=== PATIENT | female | born 1950 | race Caucasian/White ===

== ENCOUNTER 2020-04-04 08:42 | Outpatient (CLI) | payer MEDICARE, SELFPAY ==
[2020-04-04 09:17] LABS: Basophils Percent Auto 0.3 % (0.2-1.2); Eosinophils Absolute Auto 0.1 K/mm3 (0-0.3); Eosinophils Percent Auto 1.5 % (0-4.4); Hematocrit 40.9 % (37.0-47.0); Hemoglobin 12.8 g/dL (12.0-15.0); Immature Granulocyte Absolute 0.02 K/mm3 (0.00-0.031); Immature Granulocyte Percent A 0.3 % (0-0.5); Lymphocytes Absolute Auto 1.26 K/mm3 (0.9-3.2); Lymphocytes Percent Auto 19.1 % (18.3-44.2); Mean Corpuscular HGB Conc 31.3 g/dl (32-36); Mean Corpuscular Hemoglobin 27.3 pg (26-34); Mean Corpuscular Volume 87.2 fl (80-100); Mean Platelet Volume 10.1 fl (7.4-10.4); Monocytes Absolute Auto 0.4 K/mm3 (0.1-0.6); Monocytes Percent Auto 6.5 % (2.6-8.5); Neutrophils Absolute Auto 4.8 K/mm3 (1.3-6.7); Neutrophils Percent Auto 72.3 % (45.5-73.1); Platelet Count Result 217 k/mm3 (150-375); Red Blood Count 4.69 M/mm3 (4.2-5.4); Red Cell Distribution Width 14.8 % (11.5-14.5); White Blood Count 6.6 K/mm3 (4.5-10.0)
[2020-04-04 09:23] LABS: Hemoglobin A1C 6.1 % (<5.7)
[2020-04-04 09:30] LABS: Alanine Aminotransferase 12 U/L (4-35); Albumin Level 4.3 g/dL (3.5-5.1); Alkaline Phosphatase 87 U/L (38-126); Aspartate Amino Transferase 18 U/L (14-36); Bilirubin,Total 0.5 mg/dL (0.2-1.3); Blood Urea Nitrogen 23 mg/dL (7-17); Calcium 9.4 mg/dL (8.4-10.2); Carbon Dioxide 30 mmol/L (22-30); Chloride 104 mmol/L (98-107); Cholesterol 186 mg/dL (0-200); Estimated Glomerular Filt Rate > 60; Glucose 116 mg/dL (65-105); HDL Direct 45 mg/dL; Potassium 5.1 mmol/L (3.4-5.0); Sodium 139 mmol/L (137-145); Triglycerides 157 mg/dL (<150)
[2020-04-04 09:41] LABS: LDL Cholesterol Direct 50 mg/dL
[2020-04-04 10:58] LABS: Free T4 Free Thyroxine 0.82 ng/mL (0.78-2.19)
[2020-04-08 22:55] LABS: Homocysteine 13.3 umol/L (<10.4)
[2020-04-09 13:30] LABS: Vitamin D 1,25 (OH)2 Total 47 pg/mL (18-72); Vitamin D2 1,25 (OH)2 <8 pg/mL; Vitamin D3 1,25 (OH)2 47 pg/mL
== END 2020-04-04 08:43 | disposition home or self-care (01) ==
PROVIDERS: PCP Internal Medicine; Visit Provider Internal Medicine
DX: E55.9 Vitamin D deficiency, unspecified (principal); E03.9 Hypothyroidism, unspecified; Z79.899 Other long term (current) drug therapy; R79.9 Abnormal finding of blood chemistry, unspecified; E05.90 Thyrotoxicosis, unspecified without thyrotoxic crisis or storm
CPT/HCPCS: 36415; 80053; 80061; 82652; 83036; 83090; 84439; 84443; 85025

== ENCOUNTER 2020-05-27 09:48 | Outpatient (CLI) | payer MEDICARE, SELFPAY ==
[2020-05-27 11:12] LABS: Thyroid Stimulating Hormone 0.228 uIU/mL (0.465-4.680)
[2020-05-27 11:32] LABS: Free T4 Free Thyroxine 1.85 ng/mL (0.78-2.19)
== END 2020-05-27 09:49 | disposition home or self-care (01) ==
PROVIDERS: PCP Internal Medicine; Visit Provider Internal Medicine
DX: E05.90 Thyrotoxicosis, unspecified without thyrotoxic crisis or storm (principal)
CPT/HCPCS: 36415; 84439; 84443

== ENCOUNTER 2020-07-17 15:44 | Outpatient (CLI) | payer MEDICARE, SELFPAY ==
[2020-07-17 16:19] LABS: Hemoglobin A1C 5.6 % (<5.7)
[2020-07-17 16:25] LABS: Anion Gap 6 mmol/L (8-16); Blood Urea Nitrogen 21 mg/dL (7-17); Calcium 8.8 mg/dL (8.4-10.2); Carbon Dioxide 30 mmol/L (22-30); Chloride 104 mmol/L (98-107); Cholesterol 146 mg/dL (0-200); Estimated Glomerular Filt Rate > 60; Glucose 100 mg/dL (65-105); HDL Direct 51 mg/dL; Potassium 4.4 mmol/L (3.4-5.0); Sodium 140 mmol/L (137-145); Triglycerides 118 mg/dL (<150)
[2020-07-17 16:35] LABS: LDL Cholesterol Direct 42 mg/dL
== END 2020-07-17 15:45 | disposition home or self-care (01) ==
PROVIDERS: PCP Internal Medicine; Visit Provider Internal Medicine
DX: E03.9 Hypothyroidism, unspecified (principal); R73.03 Prediabetes; Z79.899 Other long term (current) drug therapy
CPT/HCPCS: 36415; 80048; 80061; 83036

== ENCOUNTER 2020-10-28 12:50 | Outpatient (CLI) | payer MEDICARE, SELFPAY ==
[2020-10-28 13:47] LABS: Anion Gap 6 mmol/L (8-16); Blood Urea Nitrogen 14 mg/dL (7-17); Calcium 8.8 mg/dL (8.4-10.2); Carbon Dioxide 30 mmol/L (22-30); Chloride 105 mmol/L (98-107); Cholesterol 195 mg/dL (0-200); Estimated Glomerular Filt Rate > 60; Glucose 117 mg/dL (65-105); HDL Direct 58 mg/dL; Potassium 4.1 mmol/L (3.4-5.0); Sodium 141 mmol/L (137-145); Triglycerides 116 mg/dL (<150)
[2020-10-28 13:50] LABS: LDL Cholesterol Direct 66 mg/dL
[2020-10-28 14:15] LABS: Free T4 Free Thyroxine 1.05 ng/mL (0.78-2.19)
== END 2020-10-28 12:51 | disposition home or self-care (01) ==
PROVIDERS: PCP Internal Medicine; Visit Provider Internal Medicine
DX: E05.90 Thyrotoxicosis, unspecified without thyrotoxic crisis or storm (principal); Z79.899 Other long term (current) drug therapy
CPT/HCPCS: 36415; 80048; 80061; 84439; 84443

== ENCOUNTER 2021-04-21 16:07 | Outpatient (CLI) | payer MEDICARE, SELFPAY ==
--- NOTE | ~2021-04-21 | MM_ITS ---
EXAMINATION: MM screening huber BI w giorgio HISTORY: Screening TECHNIQUE: Craniocaudal and mediolateral oblique 3-D tomosynthesis images were obtained and synthetic 2-D images were generated. CAD analysis was submitted and interpreted. COMPARISON: No prior mammogram is available for comparison at this institution. BREAST PARENCHYMAL COMPOSITION: There are scattered areas of fibroglandular density. FINDINGS: There is no evidence of suspicious mass, calcification, or architectural distortion to sugg est malignancy in either breast. There has been no suspicious interval change. IMPRESSION: 1. No mammographic evidence of malignancy. 2. Recommend routine screening mammography in one year. BI-RADS Category 1: Negative Reviewed, dictated and finalized at location A.
--- NOTE | ~2021-04-21 | DEXA_ITS ---
Bone Density Report Name: Shasta Powers Age: 70 Sex: Female Ethnicity: White Date of : 1950 Indication: postmenopausal; cancer; hysterectomy; Referring Provider: MITCHELL MONTES Study: Bone densitometry was performed. Exam Date: April 21, 2021 Accession number: [id number] Bone Density: Region BMD T-score Z-score Classification AP Spine (L1-L4) 1.138 0.8 3.1 Normal Femoral Neck (Left) 0.715 -1.2 0.7 Osteopenia Total Hip (Left) 0.968 0.2 1.9 Normal Total Hip Bilateral Avg 0.940 -0.1 1.7 Normal Femoral Neck (Right) 0.814 -0.3 1.6 Normal Total Hip (Right) 0.911 -0.3 1.4 Normal World Health Organization criteria for BMD impression classify patients as: Normal (T-score at or above -1.0), Osteopenia (T-score between -1.0 and -2.5), or Osteoporosis (T-score at or below -2.5). 10-year Fracture Risk(1): Major Osteoporotic Fracture 9.5% Hip Fracture 1.3% Reported Risk Factors: [place] (), Neck BMD=0.715, BMI=30.9 (1) FRAX(R) Version 3.08. Fracture probability calculated for an untreated patient. Fracture probability may be lower if the patient has received treatment. Clinical Information Provided by Patient: Has used the following medications: Vitamin D Has the following medical conditions: Cancer, Hysterectomy Patient maximum height was 69 Menopause Age: 38 Onset of menses at age 11 Number of children 2 Impression: The patient has low bone mass, based on the Left Femoral Neck T-score. The patient has an estimated ten-year risk of hip fracture of 1.3% and an estimated ten-year risk of major fracture of 9.5%, based on the WHO FRAX algorithm. Discussion: BONE DENSITY IS LOW AT ONE OR MORE SKELETAL SITES. This patient's lowest T-score is low at one or more skeletal sites. It meets the World Health Organization's (WHO) criteria for ?low bone mass? (T-score between -1.0 and -2.5). The patient's 10-year risk of fracture as calculated by FRAX is less than the threshold where pharmacological therapy is recommended by the National Osteoporosis Foundation (NOF). However, all treatment decisions require clinical judgment and consideration of individual patient factors, including patient preferences, comorbidities, previous drug use, risk factors not captured in the FRAX model (e.g., frailty, falls, vitamin D deficiency, increased bone turnover, interval significant decline in bone density) and possible under or overestimation of fracture risk by FRAX. The patient should follow a healthful lifestyle (good nutrition with adequate calcium and vitamin D, and appropriate weight-bearing exercise). Follow-Up: Consider repeating this study in 2 to 3 years to reassess this patient's status, or sooner if there is some new clinical indication. Reported by: CLAIRE on 04/21/2021 3:37:00 PM.
[2021-04-21 17:12] LABS: Basophils Percent Auto 0.3 % (0.2-1.2); Eosinophils Absolute Auto 0.1 K/mm3 (0-0.3); Eosinophils Percent Auto 0.9 % (0-4.4); Hematocrit 40.9 % (37.0-47.0); Immature Granulocyte Absolute 0.01 K/mm3 (0.00-0.031); Immature Granulocyte Percent A 0.1 % (0-0.5); Lymphocytes Absolute Auto 1.64 K/mm3 (0.9-3.2); Lymphocytes Percent Auto 20.9 % (18.3-44.2); Mean Corpuscular HGB Conc 31.8 g/dl (32-36); Mean Corpuscular Hemoglobin 27.4 pg (26-34); Mean Corpuscular Volume 86.3 fl (80-100); Mean Platelet Volume 10.4 fl (7.4-10.4); Monocytes Absolute Auto 0.5 K/mm3 (0.1-0.6); Monocytes Percent Auto 5.7 % (2.6-8.5); Neutrophils Absolute Auto 5.7 K/mm3 (1.3-6.7); Neutrophils Percent Auto 72.1 % (45.5-73.1); Platelet Count Result 264 k/mm3 (150-375); Red Blood Count 4.74 M/mm3 (4.2-5.4); Red Cell Distribution Width 14.8 % (11.5-14.5); White Blood Count 7.9 K/mm3 (4.5-10.0)
[2021-04-21 17:25] LABS: Alanine Aminotransferase 14 U/L (4-35); Albumin Level 4.8 g/dL (3.5-5.1); Alkaline Phosphatase 74 U/L (38-126); Anion Gap 11 mmol/L (8-16); Aspartate Amino Transferase 21 U/L (14-36); Bilirubin,Total 0.5 mg/dL (0.2-1.3); Blood Urea Nitrogen 26 mg/dL (7-17); Calcium 9.9 mg/dL (8.4-10.2); Carbon Dioxide 24 mmol/L (22-30); Chloride 102 mmol/L (98-107); Cholesterol 218 mg/dL (0-200); Estimated Glomerular Filt Rate > 60; Glucose 97 mg/dL (65-110); HDL Direct 57 mg/dL; Potassium 4.6 mmol/L (3.4-5.0); Sodium 137 mmol/L (137-145); Triglycerides 179 mg/dL (<150)
[2021-04-21 17:36] LABS: LDL Cholesterol Direct 52 mg/dL
[2021-04-21 18:35] LABS: Hemoglobin A1C 5.8 % (<5.7)
[2021-04-21 19:03] LABS: Free T4 Free Thyroxine 1.39 ng/mL (0.78-2.19)
[2021-04-25 20:09] LABS: Homocysteine 11.2 umol/L (<10.4)
[2021-04-25 23:46] LABS: Vitamin D 1,25 (OH)2 Total 43 pg/mL (18-72); Vitamin D2 1,25 (OH)2 <8 pg/mL; Vitamin D3 1,25 (OH)2 43 pg/mL
== END 2021-04-21 16:08 | disposition home or self-care (01) ==
PROVIDERS: PCP Internal Medicine; Visit Provider Internal Medicine
DX: Z12.31 Encounter for screening mammogram for malignant neoplasm of breast (principal); Z78.0 Asymptomatic menopausal state; E55.9 Vitamin D deficiency, unspecified; Z79.899 Other long term (current) drug therapy; E03.9 Hypothyroidism, unspecified; R73.09 Other abnormal glucose; R79.89 Other specified abnormal findings of blood chemistry; M85.852 Other specified disorders of bone density and structure, left thigh
CPT/HCPCS: 36415; 77063; 77067; 77080; 80053; 80061; 82652; 83036; 83090; 84439; 84443; 85025

== ENCOUNTER 2021-11-03 15:47 | Outpatient (CLI) | payer MEDICARE, SELFPAY ==
[2021-11-03 16:41] LABS: Alanine Aminotransferase 14 U/L (4-35); Albumin Level 4.2 g/dL (3.5-5.1); Alkaline Phosphatase 74 U/L (38-126); Anion Gap 6 mmol/L (8-16); Aspartate Amino Transferase 22 U/L (14-36); Bilirubin,Total 0.4 mg/dL (0.2-1.3); Blood Urea Nitrogen 25 mg/dL (7-17); Calcium 9.3 mg/dL (8.4-10.2); Carbon Dioxide 28 mmol/L (22-30); Chloride 105 mmol/L (98-107); Cholesterol 215 mg/dL (0-200); Estimated Glomerular Filt Rate 49; Glucose 102 mg/dL (65-110); HDL Direct 51 mg/dL; Potassium 4.7 mmol/L (3.4-5.0); Sodium 139 mmol/L (137-145); Triglycerides 204 mg/dL (<150)
[2021-11-03 16:43] LABS: Basophils Percent Auto 0.3 % (0.2-1.2); Eosinophils Absolute Auto 0.1 K/mm3 (0-0.3); Eosinophils Percent Auto 1.8 % (0-4.4); Hematocrit 42.4 % (37.0-47.0); Hemoglobin 12.9 g/dL (12.0-15.0); Immature Granulocyte Absolute 0.02 K/mm3 (0.00-0.031); Immature Granulocyte Percent A 0.3 % (0-0.5); Lymphocytes Absolute Auto 1.82 K/mm3 (0.9-3.2); Lymphocytes Percent Auto 25.9 % (18.3-44.2); Mean Corpuscular HGB Conc 30.4 g/dl (32-36); Mean Corpuscular Hemoglobin 27.7 pg (26-34); Mean Corpuscular Volume 91.2 fl (80-100); Mean Platelet Volume 10.3 fl (7.4-10.4); Monocytes Absolute Auto 0.5 K/mm3 (0.1-0.6); Monocytes Percent Auto 7.1 % (2.6-8.5); Neutrophils Absolute Auto 4.5 K/mm3 (1.3-6.7); Neutrophils Percent Auto 64.6 % (45.5-73.1); Platelet Count Result 237 k/mm3 (150-375); Red Blood Count 4.65 M/mm3 (4.2-5.4); Red Cell Distribution Width 15.1 % (11.5-14.5)
[2021-11-03 16:52] LABS: LDL Cholesterol Direct 67 mg/dL
[2021-11-03 18:59] LABS: Hemoglobin A1C 5.7 % (<5.7)
[2021-11-03 20:14] LABS: Free T4 Free Thyroxine 0.88 ng/mL (0.78-2.19); Vitamin D 25 Hydroxy 53.6 ng/mL
[2021-11-03 21:36] LABS: Vitamin B12 > 1000.0 pg/mL (239-931)
== END 2021-11-03 15:48 | disposition home or self-care (01) ==
LOC: ANHLAB 15:51
PROVIDERS: PCP Internal Medicine; Visit Provider Internal Medicine
DX: R79.89 Other specified abnormal findings of blood chemistry (principal); E55.9 Vitamin D deficiency, unspecified; R73.09 Other abnormal glucose; E78.5 Hyperlipidemia, unspecified; E03.9 Hypothyroidism, unspecified; Z79.899 Other long term (current) drug therapy
CPT/HCPCS: 36415; 80053; 80061; 82306; 82607; 82746; 83036; 84439; 84443; 85025

== ENCOUNTER 2022-07-09 09:09 | Outpatient (CLI) | payer MEDICARE, SELFPAY ==
[2022-07-09 09:27] LABS: Basophils Percent Auto 0.3 % (0.2-1.2); Eosinophils Absolute Auto 0.2 K/mm3 (0-0.3); Eosinophils Percent Auto 2.5 % (0-4.4); Hemoglobin 12.6 g/dL (12.0-15.0); Immature Granulocyte Absolute 0.01 K/mm3 (0.00-0.031); Immature Granulocyte Percent A 0.1 % (0-0.5); Lymphocytes Absolute Auto 1.32 K/mm3 (0.9-3.2); Lymphocytes Percent Auto 19.8 % (18.3-44.2); Mean Corpuscular HGB Conc 31.5 g/dl (32-36); Mean Corpuscular Volume 85.7 fl (80-100); Mean Platelet Volume 9.9 fl (7.4-10.4); Monocytes Absolute Auto 0.5 K/mm3 (0.1-0.6); Neutrophils Absolute Auto 4.7 K/mm3 (1.3-6.7); Neutrophils Percent Auto 70.3 % (45.5-73.1); Platelet Count Result 248 k/mm3 (150-375); Red Blood Count 4.67 M/mm3 (4.2-5.4); Red Cell Distribution Width 15.8 % (11.5-14.5); White Blood Count 6.7 K/mm3 (4.5-10.0)
[2022-07-09 09:41] LABS: Alanine Aminotransferase 16 U/L (6-35); Albumin Level 4.3 g/dL (3.5-5.1); Alkaline Phosphatase 74 U/L (38-126); Anion Gap 13 mmol/L (8-16); Aspartate Amino Transferase 21 U/L (14-36); Bilirubin,Total 0.5 mg/dL (0.2-1.3); Blood Urea Nitrogen 20 mg/dL (7-17); Calcium 8.8 mg/dL (8.4-10.2); Carbon Dioxide 26 mmol/L (22-30); Chloride 102 mmol/L (98-107); Cholesterol 165 mg/dL (0-200); Estimated Glomerular Filt Rate > 60; Glucose 98 mg/dL (65-110); HDL Direct 58 mg/dL; Potassium 4.1 mmol/L (3.4-5.0); Sodium 141 mmol/L (137-145); Triglycerides 91 mg/dL (<150)
[2022-07-09 09:52] LABS: LDL Cholesterol Direct 49 mg/dL
[2022-07-09 09:58] LABS: Free T4 Free Thyroxine 1.78 ng/mL (0.78-2.19); Vitamin D 25 Hydroxy 38.9 ng/mL
[2022-07-09 10:10] LABS: Thyroid Stimulating Hormone 0.164 uIU/mL (0.465-4.680)
[2022-07-16 16:43] LABS: Homocysteine 9.4 umol/L (<10.4)
== END 2022-07-09 09:10 | disposition home or self-care (01) ==
PROVIDERS: PCP Internal Medicine; Visit Provider Internal Medicine
DX: E55.9 Vitamin D deficiency, unspecified (principal); Z51.81 Encounter for therapeutic drug level monitoring; Z79.899 Other long term (current) drug therapy; E03.9 Hypothyroidism, unspecified; R79.89 Other specified abnormal findings of blood chemistry; Z13.220 Encounter for screening for lipoid disorders
CPT/HCPCS: 36415; 80053; 80061; 82306; 83090; 84439; 84443; 85025

== ENCOUNTER 2022-07-13 09:01 | Outpatient (CLI) | payer MEDICARE, SELFPAY ==
--- NOTE | ~2022-07-13 | XR_ITS ---
EXAMINATION: XR chest 2V 07/13/2022 09:21 INDICATION: Shortness of breath. PROCEDURE: 2 view chest COMPARISON: 09/03/2015 FINDINGS: The lungs are clear. The cardiomediastinal silhouette is within normal limits. There are no pleural effusions. There is no pneumothorax suspected. IMPRESSION: 1: NO ACUTE CARDIOPULMONARY DISEASE. Reviewed, dictated and finalized at location B.
== END 2022-07-13 09:02 | disposition home or self-care (01) ==
PROVIDERS: PCP Internal Medicine; Visit Provider Internal Medicine
DX: R06.02 Shortness of breath (principal)
CPT/HCPCS: 71046

== ENCOUNTER 2022-07-27 08:39 | Outpatient (CLI) | payer MEDICARE, SELFPAY ==
--- NOTE | ~2022-07-27 | NM_ITS ---
EXAMINATION: NM hilary stress w perfusion DATE: 07/27/2022 12:14 INDICATION: Shortness of breath. Dyspnea on exertion. TECHNIQUE: Rest images were obtained following intravenous administration of 10.1 mCi Tc99m tetrofosm in (Myoview). The patient was infused intravenously with Lexiscan (Regadenoson). Then, 31.5 mCi Tc99m tetrofosmin (Myoview) was administered intravenously, and stress images were obtained. Data was ramirez nstructed into short axis and horizontal and vertical long axis SPECT images. Gated SPECT images were also obtained. COMPARISON: None. FINDINGS: There is no definite reversible or fixed perfusion abnormality to suggest ischemia or infar ction. There is normal left ventricular chamber size, wall motion and ejection fraction. Left ventr icular ejection fraction measures 67%. IMPRESSION: 1. Normal myocardial perfusion at rest and during stress. 2. Left ventricular ejection fraction measuring 67%. Reviewed, dictated and finalized at location A. [employer]
--- NOTE | 2022-07-27 08:54 | EST_ITS ---
Patient Info Name: Shasta Aquino Age: 71 years : 1950 Gender: Female Ht: 69 in Wt: 220 lbs BSA: 2.24 m2 Exam Date: 07/27/2022 9:53 AM Exam Location: [facility] Stress Patient Status: Outpatient Admit Date: 07/27/2022 Staff Ordering Physician: Gadiel Bradley MD Attending Provider: Gadiel Bradley MD Exercise Technologist: Judy Wick RDCS Exercise Physician: Brendon Salmeron DO Exam Type: CA stress hilary w NM Study Info Indications R06.00 - Dyspnea, unspecified A regadenoson stress test was performed. Summary 1. 1. Negative lexiscan stress test for ischemic ST changes by ECG criteria. 2. 2. Baseline hypertension. 3. 3. Nuclear scan to follow and will be reported separately. Please correlate with it. 4. 4. Patient informed of the above results. Protocol: Lexiscan Stress ECG Details Stage: REST Duration (min): 1 min : 24 sec HR (bpm): 73 SBP (mmHg): 153 DBP (mmHg): 99 Stage: REST Duration (min): 7 min : 54 sec HR (bpm): 75 SBP (mmHg): 153 DBP (mmHg): 99 Stage: STAGE 1 Duration (min): 0 min : 59 sec HR (bpm): 69 SBP (mmHg): 165 DBP (mmHg): 100 Stage: RECOVERY Duration (min): 1 min : 0 sec HR (bpm): 73 SBP (mmHg): 165 DBP (mmHg): 100 Stage: RECOVERY Duration (min): 2 min : 0 sec HR (bpm): 85 SBP (mmHg): 149 DBP (mmHg): 93 Stage: RECOVERY Duration (min): 3 min : 0 sec HR (bpm): 85 SBP (mmHg): 149 DBP (mmHg): 88 Stage: RECOVERY Duration (min): 4 min : 0 sec HR (bpm): 84 SBP (mmHg): 149 DBP (mmHg): 88 Stage: RECOVERY Duration (min): 5 min : 0 sec HR (bpm): 81 SBP (mmHg): 146 DBP (mmHg): 84 Stage: RECOVERY Duration (min): 6 min : 0 sec HR (bpm): 76 SBP (mmHg): 146 DBP (mmHg): 84 Stage: RECOVERY Duration (min): 7 min : 0 sec HR (bpm): 78 SBP (mmHg): 145 DBP (mmHg): 83 Stage: RECOVERY Duration (min): 7 min : 3 sec HR (bpm): 78 SBP (mmHg): 145 DBP (mmHg): 83 Rest HR: 75 bpm Peak HR: 87 bpm Rest Sys BP: 153 mmHg Peak Sys BP: 165 mmHg Max Pred HR: 147 bpm % Max Pred HR: 59 % Target HR: 125 bpm Max RPP: 14,355 bpm*mmHg Termination Reason: Completed protocol Cardiac Symptoms: Nausea Total Time: 1 min : 0 sec Rest Syed BP: 99 mmHg Peak Syed BP: 100 mmHg Total Dose: 0.4 mg Resting ECG Sinus rhythm, IRBBB. Stress ECG No ST changes. Arrhythmias None. Report Signatures
== END 2022-07-27 08:40 | disposition home or self-care (01) ==
LOC: ANHCARD 08:41
PROVIDERS: PCP Internal Medicine; Visit Provider Internal Medicine
DX: R06.02 Shortness of breath (principal); R06.09 Other forms of dyspnea
CPT/HCPCS: 78452; 93017; A9502; J2785

== ENCOUNTER 2023-05-10 10:14 | Outpatient (CLI) | payer MEDICARE, SELFPAY ==
[2023-05-10 11:08] LABS: Basophils Percent Auto 0.3 % (0.2-1.2); Eosinophils Absolute Auto 0.1 K/mm3 (0-0.3); Eosinophils Percent Auto 1.4 % (0-4.4); Hematocrit 43.1 % (37.0-47.0); Hemoglobin 13.3 g/dL (12.0-15.0); Immature Granulocyte Absolute 0.01 K/mm3 (0.00-0.031); Immature Granulocyte Percent A 0.2 % (0-0.5); Lymphocytes Percent Auto 25.5 % (18.3-44.2); Mean Corpuscular HGB Conc 30.9 g/dl (32-36); Mean Corpuscular Hemoglobin 27.7 pg (26-34); Mean Corpuscular Volume 89.6 fl (80-100); Mean Platelet Volume 10.7 fl (7.4-10.4); Monocytes Absolute Auto 0.5 K/mm3 (0.1-0.6); Monocytes Percent Auto 7.3 % (2.6-8.5); Neutrophils Absolute Auto 4.1 K/mm3 (1.3-6.7); Neutrophils Percent Auto 65.3 % (45.5-73.1); Platelet Count Result 242 k/mm3 (150-375); Red Blood Count 4.81 M/mm3 (4.2-5.4); Red Cell Distribution Width 14.9 % (11.5-14.5); White Blood Count 6.3 K/mm3 (4.5-10.0)
[2023-05-10 11:14] LABS: Hemoglobin A1C 5.9 % (<5.7)
[2023-05-10 11:18] LABS: Alanine Aminotransferase 30 U/L (6-35); Albumin Level 4.3 g/dL (3.5-5.1); Alkaline Phosphatase 78 U/L (38-126); Anion Gap 4 mmol/L (8-16); Aspartate Amino Transferase 31 U/L (14-36); Bilirubin,Total 0.6 mg/dL (0.2-1.3); Blood Urea Nitrogen 18 mg/dL (7-17); Calcium 9.2 mg/dL (8.4-10.2); Carbon Dioxide 28 mmol/L (22-30); Chloride 105 mmol/L (98-107); Cholesterol 128 mg/dL (0-200); Estimated Glomerular Filt Rate > 60; Glucose 108 mg/dL (65-110); HDL Direct 65 mg/dL; Potassium 4.5 mmol/L (3.4-5.0); Sodium 137 mmol/L (137-145); Triglycerides 110 mg/dL (<150)
[2023-05-10 11:29] LABS: LDL Cholesterol Direct 37 mg/dL
[2023-05-10 11:48] LABS: Thyroid Stimulating Hormone 0.019 uIU/mL (0.465-4.680)
[2023-05-10 11:54] LABS: Free T4 Free Thyroxine 2.25 ng/mL (0.78-2.19)
== END 2023-05-10 10:15 | disposition home or self-care (01) ==
PROVIDERS: PCP Internal Medicine; Visit Provider Internal Medicine
DX: Z79.899 Other long term (current) drug therapy (principal); E03.9 Hypothyroidism, unspecified; R73.03 Prediabetes; E78.5 Hyperlipidemia, unspecified; E55.9 Vitamin D deficiency, unspecified
CPT/HCPCS: 36415; 80053; 80061; 82306; 83036; 84439; 84443; 85025

== ENCOUNTER 2024-02-07 13:00 | Outpatient (CLI) | payer MEDICARE, SELFPAY ==
--- NOTE | ~2024-02-07 | XR_ITS ---
EXAMINATION: XR chest 2V DATE: 02/07/2024 12:48 INDICATION: Other forms of dyspnea. TECHNIQUE: Frontal and lateral views of the chest were obtained. COMPARISON: Chest 2 views 07/13/2022 FINDINGS: There is mild atelectasis at right lung base. There is no pneumonia, pleural effusion, or p neumothorax. The heart size is normal. IMPRESSION: 1. Mild atelectasis at right lung base. Reviewed, dictated and finalized at location A.
[2024-02-07 13:59] LABS: Hemoglobin A1C 5.8 % (<5.7)
[2024-02-07 14:06] LABS: Alanine Aminotransferase 15 U/L (6-35); Albumin Level 4.5 g/dL (3.5-5.1); Alkaline Phosphatase 69 U/L (38-126); Anion Gap 6 mmol/L (4-12); Aspartate Amino Transferase 23 U/L (14-36); Bilirubin,Total 0.5 mg/dL (0.2-1.3); Blood Urea Nitrogen 14 mg/dL (7-17); Calcium 8.8 mg/dL (8.4-10.2); Carbon Dioxide 26 mmol/L (22-30); Chloride 106 mmol/L (98-107); Cholesterol 200 mg/dL (0-200); Estimated Glomerular Filt Rate > 60; Glucose 92 mg/dL (65-110); HDL Direct 67 mg/dL; Potassium 4.9 mmol/L (3.4-5.0); Sodium 138 mmol/L (137-145); Triglycerides 185 mg/dL (<150)
[2024-02-07 14:17] LABS: LDL Cholesterol Direct 71 mg/dL
[2024-02-07 14:23] LABS: Free T4 Free Thyroxine 1.11 ng/mL (0.78-2.19)
== END 2024-02-07 13:01 | disposition home or self-care (01) ==
PROVIDERS: PCP Internal Medicine; Visit Provider Internal Medicine
DX: R06.09 Other forms of dyspnea (principal); Z79.899 Other long term (current) drug therapy; R73.03 Prediabetes; E78.5 Hyperlipidemia, unspecified; E03.9 Hypothyroidism, unspecified
CPT/HCPCS: 36415; 71046; 80053; 80061; 83036; 84439; 84443

== ENCOUNTER 2024-02-14 11:31 | Outpatient (CLI) | payer MEDICARE, SELFPAY ==
[2024-02-14 12:59] LABS: Basophils Percent Auto 0.3 % (0.2-1.2); Eosinophils Absolute Auto 0.2 K/mm3 (0-0.3); Eosinophils Percent Auto 2.2 % (0-4.4); Hematocrit 44.5 % (37.0-47.0); Hemoglobin 13.7 g/dL (12.0-15.0); Immature Granulocyte Absolute 0.02 K/mm3 (0.00-0.031); Immature Granulocyte Percent A 0.3 % (0-0.5); Lymphocytes Absolute Auto 1.63 K/mm3 (0.9-3.2); Lymphocytes Percent Auto 23.9 % (18.3-44.2); Mean Corpuscular HGB Conc 30.8 g/dl (32-36); Mean Corpuscular Hemoglobin 27.1 pg (26-34); Mean Corpuscular Volume 88.1 fl (80-100); Mean Platelet Volume 10.4 fl (7.4-10.4); Monocytes Absolute Auto 0.4 K/mm3 (0.1-0.6); Neutrophils Absolute Auto 4.6 K/mm3 (1.3-6.7); Neutrophils Percent Auto 67.3 % (45.5-73.1); Platelet Count Result 249 k/mm3 (150-375); Red Blood Count 5.05 M/mm3 (4.2-5.4); Red Cell Distribution Width 15.1 % (11.5-14.5); White Blood Count 6.8 K/mm3 (4.5-10.0)
== END 2024-02-14 11:32 | disposition home or self-care (01) ==
LOC: ANHLAB 11:34
PROVIDERS: PCP Internal Medicine; Visit Provider Internal Medicine
DX: R06.09 Other forms of dyspnea (principal); Z79.899 Other long term (current) drug therapy
CPT/HCPCS: 36415; 85025

== ENCOUNTER 2024-04-02 14:56 | Outpatient (CLI) | payer MEDICARE, SELFPAY ==
[2024-04-02 15:31] LABS: Basophils Percent Auto 0.3 % (0.2-1.2); Eosinophils Absolute Auto 0.1 K/mm3 (0-0.3); Eosinophils Percent Auto 1.8 % (0-4.4); Hematocrit 41.8 % (37.0-47.0); Hemoglobin 13.3 g/dL (12.0-15.0); Immature Granulocyte Absolute 0.01 K/mm3 (0.00-0.031); Immature Granulocyte Percent A 0.2 % (0-0.5); Lymphocytes Absolute Auto 1.49 K/mm3 (0.9-3.2); Lymphocytes Percent Auto 22.6 % (18.3-44.2); Mean Corpuscular HGB Conc 31.8 g/dl (32-36); Mean Corpuscular Hemoglobin 28.1 pg (26-34); Mean Corpuscular Volume 88.4 fl (80-100); Mean Platelet Volume 10.1 fl (7.4-10.4); Monocytes Absolute Auto 0.5 K/mm3 (0.1-0.6); Monocytes Percent Auto 7.1 % (2.6-8.5); Neutrophils Absolute Auto 4.5 K/mm3 (1.3-6.7); Platelet Count Result 215 k/mm3 (150-375); Red Blood Count 4.73 M/mm3 (4.2-5.4); Red Cell Distribution Width 14.7 % (11.5-14.5); White Blood Count 6.6 K/mm3 (4.5-10.0)
[2024-04-02 15:48] LABS: Alanine Aminotransferase 17 U/L (6-35); Albumin Level 4.5 g/dL (3.5-5.1); Alkaline Phosphatase 54 U/L (38-126); Anion Gap 9 mmol/L (4-12); Aspartate Amino Transferase 22 U/L (14-36); Bilirubin,Total 0.6 mg/dL (0.2-1.3); Blood Urea Nitrogen 13 mg/dL (7-17); Carbon Dioxide 26 mmol/L (22-30); Chloride 105 mmol/L (98-107); Cholesterol 120 mg/dL (0-200); Estimated Glomerular Filt Rate > 60; Glucose 99 mg/dL (65-110); HDL Direct 47 mg/dL; Potassium 4.3 mmol/L (3.4-5.0); Sodium 140 mmol/L (137-145); Triglycerides 231 mg/dL (<150)
[2024-04-02 16:04] LABS: Free T4 Free Thyroxine 1.33 ng/mL (0.78-2.19); Vitamin D 25 Hydroxy 51.3 ng/mL
[2024-04-02 16:06] LABS: Appearance Urine Clear (Clear); Bacteria Urine None Seen /hpf; Bilirubin Urine Negative (Negative); Blood Urine Negative (Negative); Color Urine Yellow (Yellow); Glucose Urine UA Negative (Negative); Ketones Urine Negative (Negative); Leukocyte Esterase Ur 1+ LEU/UL (Negative); Need Manual Microscopic Reviewed; Nitrate Urine Negative (Negative); Non Pathogenic Casts 0-2; Protein Urine Negative (Negative); RBC Urine 0-2 /hpf (0-2); Specific Grav Ur 1.018 (1.001-1.035); Squamous Epithelial Cell Urine Occasional /hpf (Few); Urobilinogen Urine 0.2 mg/dL (<2.0); WBC Urine 0-5 /hpf (0-3)
[2024-04-02 16:08] LABS: Add Urine Microscopic? YES
[2024-04-02 16:10] LABS: LDL Cholesterol Direct 33 mg/dL
[2024-04-02 17:35] LABS: Thyroid Stimulating Hormone 0.957 uIU/mL (0.465-4.680)
[2024-04-03 07:27] LABS: Hemoglobin A1C 6.4 % (<5.7)
== END 2024-04-02 14:57 | disposition home or self-care (01) ==
LOC: ANHLAB 15:00
PROVIDERS: PCP Internal Medicine; Visit Provider Internal Medicine
DX: E55.9 Vitamin D deficiency, unspecified (principal); E03.9 Hypothyroidism, unspecified; E78.5 Hyperlipidemia, unspecified; R73.03 Prediabetes; Z79.899 Other long term (current) drug therapy
CPT/HCPCS: 36415; 80053; 80061; 81001; 82306; 83036; 84439; 84443; 85025

== ENCOUNTER 2024-07-10 12:08 | Outpatient (CLI) | payer MEDICARE, SELFPAY ==
[2024-07-10 12:52] LABS: Anion Gap 8 mmol/L (4-12); Blood Urea Nitrogen 21 mg/dL (7-17); Calcium 9.4 mg/dL (8.4-10.2); Carbon Dioxide 30 mmol/L (22-30); Chloride 103 mmol/L (98-107); Estimated Glomerular Filt Rate > 60; Glucose 110 mg/dL (65-110); Potassium 4.8 mmol/L (3.4-5.0); Sodium 141 mmol/L (137-145)
[2024-07-10 16:02] LABS: Hemoglobin A1C 5.9 % (<5.7)
== END 2024-07-10 12:09 | disposition home or self-care (01) ==
LOC: ANHLAB 12:11
PROVIDERS: PCP Internal Medicine; Visit Provider Internal Medicine
DX: R73.03 Prediabetes (principal)
CPT/HCPCS: 36415; 80048; 83036

== ENCOUNTER 2024-11-19 09:33 | Outpatient (CLI) | payer MEDICARE, SELFPAY ==
[2024-11-19 10:23] LABS: Basophils Percent Auto 0.2 % (0.2-1.2); Eosinophils Absolute Auto 0.1 K/mm3 (0-0.3); Eosinophils Percent Auto 1.6 % (0-4.4); Hematocrit 40.3 % (37.0-47.0); Hemoglobin 12.7 g/dL (12.0-15.0); Immature Granulocyte Absolute 0.02 K/mm3 (0.00-0.031); Immature Granulocyte Percent A 0.5 % (0-0.5); Lymphocytes Absolute Auto 1.14 K/mm3 (0.9-3.2); Lymphocytes Percent Auto 26.4 % (18.3-44.2); Mean Corpuscular HGB Conc 31.5 g/dl (32-36); Mean Corpuscular Hemoglobin 27.9 pg (26-34); Mean Corpuscular Volume 88.6 fl (80-100); Mean Platelet Volume 10.8 fl (7.4-10.4); Monocytes Absolute Auto 0.3 K/mm3 (0.1-0.6); Monocytes Percent Auto 6.5 % (2.6-8.5); Neutrophils Absolute Auto 2.8 K/mm3 (1.3-6.7); Neutrophils Percent Auto 64.8 % (45.5-73.1); Platelet Count Result 192 k/mm3 (150-375); Red Blood Count 4.55 M/mm3 (4.2-5.4); Red Cell Distribution Width 14.8 % (11.5-14.5); White Blood Count 4.3 K/mm3 (4.5-10.0)
[2024-11-19 10:36] LABS: Alanine Aminotransferase 16 U/L (6-35); Albumin Level 4.2 g/dL (3.5-5.1); Alkaline Phosphatase 53 U/L (38-126); Anion Gap 9 mmol/L (4-12); Aspartate Amino Transferase 20 U/L (14-36); Bilirubin,Total 0.6 mg/dL (0.2-1.3); Blood Urea Nitrogen 16 mg/dL (7-17); Carbon Dioxide 23 mmol/L (22-30); Chloride 109 mmol/L (98-107); Cholesterol 114 mg/dL (0-200); Estimated Glomerular Filt Rate > 60; Glucose 117 mg/dL (65-110); HDL Direct 69 mg/dL; Potassium 4.2 mmol/L (3.4-5.0); Sodium 141 mmol/L (137-145); Triglycerides 60 mg/dL (<150)
[2024-11-19 10:48] LABS: LDL Cholesterol Direct < 30 mg/dL
[2024-11-19 10:55] LABS: Vitamin D 25 Hydroxy 55.7 ng/mL
[2024-11-19 18:33] LABS: Hemoglobin A1C 5.8 % (<5.7)
== END 2024-11-19 09:34 | disposition home or self-care (01) ==
PROVIDERS: PCP Internal Medicine; Visit Provider Internal Medicine
DX: E78.5 Hyperlipidemia, unspecified (principal); E03.9 Hypothyroidism, unspecified; I10 Essential (primary) hypertension; R73.03 Prediabetes; E55.9 Vitamin D deficiency, unspecified
CPT/HCPCS: 36415; 80053; 80061; 82306; 83036; 84439; 84443; 85025

== ENCOUNTER 2025-04-02 09:32 | Outpatient (CLI) | payer MEDICARE, SELFPAY ==
--- OUTSIDE RECORDS SUMMARY | 2025-04-02 09:52 | XMS_ITS ---
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 Past Treatment and Therapy Plans No past plan information found. Lifetime Dose Tracking * Chemical Lifetime Dose Automatic Entry Manual Entr y Dose Length Product 1,720 mGy-cm 1,720 mGy-cm 0 mGy-cm
--- OUTSIDE RECORDS SUMMARY | 2025-04-02 09:52 | XMS_ITS | Clinical Summary ---
Author Organization [facility] Address [address] [place] [address] Care Team Providers Care Exhibits Manager Name Role Phone Gadiel Bradley MD Primary Care Provider [phone] Source Comments [facility],non-owned Affiliates and Associated Physician Practices is amultiple site organization consisting of ambulatory clinics and hospital sitesin [place], [place], [place] and [place]. This disclosure is being madepursuant to the Care Everywhere program and may not contain all information available regarding this patient. Last updated 18.[facility] Allergies No known active allergies Medications * Be aware that medications may not be up to date on this document. Alwaysverify current medications with the patient. 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 Staging:Clinical stage from 09/16/2019:Stage CASPER(cT4a, cNX, pM1b, G1) - Signed by Fabien Fowler MD on 09/16/2019 Social History Tobacco Use Types Packs/Day Years Used Date Smoking Tobacco: Never Smokeless Tobacco: Never Alcohol Use Standard Drinks/Week Comments Yes 0 (1 standard drink = 0.6 oz pur e alcohol) Socially Comments No Sex and Gender Information Value Date Recorded Sex Assigned at Not on file Legal Sex Female 6:01 AM CDT Gender Identity Not on file Sexual Orientation Not on file Last Filed Vital Signs Vital Sign Reading Time Taken Comments Blood Pressure 138/78 05/08/2019 3:24 PM CDT Pulse 78 05/08/2019 3:24 PM CDT Temperature 36.3 C (97.3 F) 05/08/2019 3:24 PM CDT Respiratory Rate 20 04/25/2019 10:2 5 AM CDT Oxygen Saturation 98% 05/08/2019 3:24 PM CDT Inhaled Oxygen Concentration - - Weight 92.9 kg (204 lb 11.2 oz) 05/08/2019 3:24 PM CDT Height 175.3 cm (5' 9) 05/08/2019 3:24 PM CDT Body Mass Index 30.23 05/08/2019 3:24 PM CDT Plan of Treatment Health Maintenance Due Date Last Done Comments BONE DENSITY TESTING 1950 MEDICARE AWV 12 MONTHS 1950 HEPATITIS C SCREENING 11/02/1966 DTAP/TDAP/TD VACCINES (1 - Tdap) 1967 PNEUMOCOCCAL VACCINE 50+ (1 of 1 - PCV) 1998 ZOSTER VACCINE (1 of 2) 1998 SCREENING FOR DIABETES 05/09/2022 05/09/2019 Respiratory Syncytial Virus (RSV) Vaccine Pt: or over 60 yrs (1 - 1-dose 75+ series) 2023 COVID-19 VACCINE ( - 2023-2 5 season) 2024 DEPRESSION SCREENING 09/19/2024 INFLUENZA VACCINE (#1) 2025 9, 06/19/2017 HEPATITIS B VACCINE Aged Out No longe r eligible based on patient's age to complete this topic HIB VACCINE Aged Out No longer eligi ble based on patient's age to complete this topic HPV VACCINE Aged Out No longer eligi ble based on patient's age to complete this topic MENINGOCOCCAL (Group B) VACCINE SHARED DECISION-MAKING Aged Out No longer eligible based on patient's age to complete this topic MENINGOCOCCAL GROUPS A/C/Y/W VACCINE Aged Out No longer eligible b ased on patient's age to complete this topic Procedures Procedure Name Priority Date/Time Associated Diagnosis Comments COMPREHENSIVE METABOLIC PANEL Routine 05/09/2019 3:00 PM CDT Primary mucinous adenocarcinoma of appendix from Last 3 Months or Most Recently Relevant to Health Maintenance Results * COMPREHENSIVE METABOLIC PANEL (05/09/2019 3:00 PM CDT) Glucose 98 65 - 99 mg/dL [facility] INSURANCE BILL BUN 17 8 - 27 mg/dL [facility] INSURANCE BILL Creatinine 0.77 0.57 - 1.00 mg/dL [facility] INSURANCE BILL eGFR by MDRD 78 >59 mL/min/1.7 3 [facility] INSURANCE BILL eGFR by MDRD 90 >59 mL/min/1.7 3 [facility] INSURANCE BILL BUN/Creatinine Ratio 22 12 - 28 [facility] INSURANCE BILL Sodium 141 134 - 144 mmol/L [facility] INSURANCE BILL Potassium 5.0 3.5 - 5.2 mmol/L [facility] INSURANCE BILL Chloride 103 96 - 106 mmol/L [facility] INSURANCE BILL CO2 25 20 - 29 mmol/L [facility] INSURANCE BILL Calcium 9.3 8.7 - 10.3 mg/dL [facility] INSURANCE BILL Protein Total 6.8 6.0 - 8.5 g/dL [facility] INSURANCE BILL Albumin 4.3 3.5 - 4.8 g/dL [facility] INSURANCE BILL Globulin Total 2.5 1.5 - 4.5 g/dL [facility] INSURANCE BILL Albumin/Globulin Ratio 1.7 1.2 - 2.2 [facility] INSURANCE BILL Bilirubin Total <0.2 0.0 - 1.2 mg/dL [facility] INSURANCE BILL Alkaline Phosphatase 71 39 - 117 IU/L [facility] INSURANCE BILL AST 10 0 - 40 IU/L [facility] INSURANCE BILL ALT 6 0 - 32 IU/L [facility] INSURANCE BILL Blood BLOOD SPECIMEN / Unknown 05/09/2019 3:00 PM CDT 05/09/2019 Narrative Resulting Agency Comment [facility] [address] [phone] Fabien Fowler MD LAB - CHEMISTRY ORDERABLES Final Result [facility] INSURANCE BILL [address] [place] [address] from Last 3 Months or Most Recently Relevant to Health Maintenance Insurance MEDICARE [facility] MEDICARE [facility] MEDICARE [facility] MED[facility] ANTHEM MEDICARE Member Subscriber Plan / Payer ([facility] 10/20/2013-Present) Name:Shasta Powers Member ID:[id number] Relation to Subscriber:Self Name:SHASTA POWERS Subscriber ID:[id number] Payer ID:Not on file Group ID:Not on file Type:Medicare Address: [address] [address] [facility] Member Subscriber Plan / Payer ([facility] 11/17/2013-Present) Name:Shasta Powers Relation to Subscriber:Self Name:SHASTA INFANTE Payer ID:[id number] (NAIC) Type:PPO Address: [place] [address] MEDICARE ANTHEM MEDICARE ANTHEM MEDICARE ANTHEM MEDICARE ANTHEM MEDICARE ANTHEM MEDICARE ANTH Care Teams Exhibits Manager Relationship Specialty Start Date End Date Gadiel Bradley MD [address] [place] [id number] PCP - General 04/18/19
--- OUTSIDE RECORDS SUMMARY | 2025-04-02 09:52 | XMS_ITS | Encounter Summary ---
Author Organization [facility] Address [address] [place] [address] Care Team Providers Care Leadership Intern Name Role Phone Gadiel Bradley MD Primary Care Provider [phone] Encounter Details Date Type Department Care Team (Late st Contact Info) Description 05/07/2020 Lab Requisition [facility] Lab [address] [place] [phone] Jil Lee DO [address] [facility] [facility] [place] [address] Social History Tobacco Use Types Packs/Day Years Used Date Smoking Tobacco: Never Smokeless Tobacco: Never Alcohol Use Standard Drinks/Week Comments Yes 0 (1 standard drink = 0.6 oz pur e alcohol) Socially Comments No Sex and Gender Information Value Date Recorded Sex Assigned at Not on file Legal Sex Female 6:01 AM CDT Gender Identity Not on file Sexual Orientation Not on file documented as of this encounter Plan of Treatment Not on file documented as of this encounter Procedures Procedure Name Priority Date/Time Associated Diagnosis Comments DERMATOPATHOLOGY Routine 05/06/2020 12:0 0 AM CDT documented in this encounter Results * DERMATOPATHOLOGY (05/06/2020 12:00 AM CDT) Case Report Dermatopathology Report Case: [id number] Authorizing Provider: Jil Lee DO Collected: 05/06/2020 12:00 AM Ordering Location: [facility] Lab Received: 05/07/2020 06:33 AM Pathologist: Pauline Bernardo MD Specimens: A) - Skin, right back B) - Skin, left chest 0 4:32 PM CDT DERMATOPATHOLOGY LABORATORY Final Diagnosis Specimen A. SKIN, right back: LENTIGINOUS MELANOCYTIC NEVUS, COMPOUND TYPE, IRRITATED (COMPOUND MELANOCYTIC NEVUS WITH ARCHITECTURAL DISORDER) (D22.5) Specimen B. SKIN, left chest: HYPERPLASTIC (HYPERTROPHIC) ACTINIC KERATOSIS (L57.0) EPIDERMAL NECROSIS SUGGESTIVE OF EXCORIATION (L98.499) 0 4:32 PM CDT DERMATOPATHOLOGY LABORATORY at 1632 CDT Clinical History A: Nevus R/O atypia. B: LPLK vs ISK R/O NMSC. 0 4:32 PM CDT DERMATOPATHOLOGY LABORATORY Gross Description Specimen A: Received is one formalin filled container labeled with the patient's name and designated right back. The specimen consists of a shave measuring [id number]. Jar 0. Specimen B: Received is one formalin filled container labeled with the patient's name and designated left chest. The specimen consists of a shave measuring 6b0x7di. Jar 0. 0 4:32 PM CDT DERMATOPATHOLOGY LABORATORY Microscopic Description Specimen A. SKIN, right back: This is a compound nevus. There is melanin pigment in the stratum corneum. There is architectural disorder characterized by a lentiginous proliferation of melanocytes between irregular nests of cells along the dermal-epidermal junction, highlighted by MART-1/Melan-A immunohistochemical staining. There is underlying fibroplasia of the papillary dermis. The intradermal component is bland appearance and matures with depth. Original and deeper sections were reviewed. (Compound Gatito's Nevus or Compound Dysplastic Nevus) Specimen B. SKIN, left chest: There is hyperkeratosis alternating with parakeratosis. There is epidermal hyperplasia with disorderly maturation of keratinocytes with nuclear pleomorphism confined to the lower half of the epidermis. The epidermis is focally necrotic and covered with a scale-crust. There is fibrin at the base. 0 4:32 PM CDT DERMATOPATHOLOGY LABORATORY Disclaimer An external and internal positive and negative controls are appropriate for the histochemical, immunohistochemical and immunofluorescence stain(s) in this case (if any), except where stated explicitly. The performance characteristics of the stain(s) cited in this report were developed and its performance characteristic determined by the Dermatopathology Laboratory at [facility], directed by Dr. Anthony Bernardo. These tests need not be, and therefore are not, approved by the [place] Food and Drug Administration. The tests are used for clinical purposes. Billing Codes Specimen Charges Stain Charges 07462 99960 1 1 [id number] 1 0 4:32 PM CDT DERMATOPATHOLOGY LABORATORY Embedded Images 0 4:32 PM CDT DERMATOPATHOLOGY LABORATORY Pathology/Cytology TISSUE SPECIMEN FROM SKIN / Unknown 05/06/2020 05/07/2020 6:33 AM CDT Miscellaneous samples (specimen) TISSUE SPECIMEN FROM SKIN / Unknown 05/06/2020 05/07/2020 6:33 AM CDT us Jil Lee DO LAB - PATHOLOGY/CYTOLOGY ORDERABLES Final Result Performing Organization Address City/State/[facility] Co de Phone Number DERMATOPATHOLOGY LABORATORY [facility] - Department of Dermatology Physical Therapist [facility]/[address] [phone] documented in this encounter Visit Diagnoses Not on filedocumented in this encounter Care Teams Leadership Intern Relationship Specialty Start Date End Date Gadiel Bradley MD [address] [facility] [address] [place] [phone] PCP - General 04/18/19 documented as of this encounter
--- OUTSIDE RECORDS SUMMARY | 2025-04-02 09:52 | XMS_ITS | Clinical Summary ---
Author Organization [facility] Address [address] [place] [address] Care Team Providers Care Office Support Assistant Name Role Phone Unavailable Primary Care Provider Unavailabl e Immunizations Immunization Administration Dates Next Due MODERNA COVID-19 (12+) MRNA, LNP-S, PF, 100 MCG/ 0.5 ML DOSE 10/30/2020,10/02/2020 Social History Tobacco Use Types Packs/Day Years Used Date Smoking Tobacco: Never Assessed Comments Unknown Sex and Gender Information Value Date Recorded Sex Assigned at Not on file Legal Sex Female 2:43 PM PHD INTER[employer] Gender Identity Not on file Sexual Orientation Not on file Plan of Treatment Health Maintenance Due Date Last Done Comments Hepatitis C 1968 DTaP, Tdap and Td Vaccines ( 1 - Tdap) 1967 Pneumococcal Vaccine: 50+ Years (1 of 1 - PCV) 1998 Zoster Vaccines (1 of 2) 1998 Dexa Scan (General) 2013 RSV Immunization or 60+ Years (1 - 1-dose 75+ series) 2023 COVID-19 Vaccine (3 - 2023-2 5 season) 2024 10/30/2020, 10/02/2020 Meningococcal B Vaccine Aged Out No l onger eligible based on patient's age to complete this topic Meningococcal Vaccine Aged Out No cely carol eligible based on patient's age to complete this topic RSV Immunizations Under 20 Months Aged Out No longer eligible b ased on patient's age to complete this topic
--- OUTSIDE RECORDS SUMMARY | 2025-04-02 09:53 | XMS_ITS | Clinical Summary ---
Author Organization [facility] Address [address] [place] [address] Care Team Providers Care Chocolate Temperer Name Role Phone Gadiel Bradley MD Primary Care Provider [phone] Ryan Easton DO Unavailable [phone] Fabien Fowler MD Unavailable Rosa Arechiga MD, Zackary Warren Unavailable Allergies No known active allergies Medications levothyroxine (SYNTHROID, LEVOTHROID) 125 mcg tablet Take 125 mcg by mouth inspector cold working before breakfast Active acetaminophen 500 mg capsule Take 2 capsules (1,000 mg total) by mouth every 8 (eight) hours 30 tablet 9 Active ibuprofen (ADVIL,MOTRIN) 600 mg tablet Take 1 tablet (600 mg total) by mouth every 8 (eight) hours 9 Active FLUoxetine (PROzac) 20 mg capsule Take 1 capsule (20 mg total) by mouth daily 0 Active ketoconazole (NIZORAL) 2 % cream APPLY TOPICALLY TO RASH ON CHEST TWICE DAILY NEEDED 2 Active levothyroxine (SYNTHROID) 137 mcg tablet 2 Active metoprolol XL (TOPROL-XL) 25 mg extended release tablet Take 1 tablet (25 mg total) by mouth daily 4 Active rosuvastatin (CRESTOR) 10 mg tablet Take 1 tablet (10 mg total) by mouth daily Active folic acid 20 mg capsule Take by mouth Activ e sodium, potassium & mag sulfates (Suprep Bowel Prep Kit) 17.5-3.13-1.6 gram recon solnIndications :Bowel Evacuation Drink first half of prep at 6:00 pm the night before procedure. Drink second half of prep 4 hours prior to leaving home for procedure. 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 Overview (10/15/2021): Added automatically from request for surgery [id number] Immunizations Immunization Administration Dates Next Due Influenza, Quadrivalent, Split, Intramuscular Influenza, Trivalent, High D ose, Split, Preservative Free, Intramuscular 07/28/2019 Surgical History Surgery Date Site/Laterality Comments LAPAROSCOPIC APPENDECTOMY 04/16/2019 Diagnostic laparoscopy, appendectomy, peritoneal implant resection HYSTERECTOMY 09/19/1989 - 09/18/1990 CATARACT EXTRACTION, BILATERAL 09/2018 & 10/2018 MENISCUS SURGERY Left HYSTERECTOMY 09/19/1989 - 09/18/1990 APPENDECTOMY 04/16/2019 MENISCUS SURGERY CATARACT EXTRACTION COLON SURGERY 07/27/2019 RIGHT COLECTOMY, OOPHORECTOMY, CYTOREDUCTION/HIPEC KNEE ARTHROSCOPY 09/19/2007 - 09/18/2008 Left [facility] OTHER SURGICAL HISTORY 07/27/2019 HIPEC COLONOSCOPY 05/20/2019 - 06/18/2019 Medical History Medical History Date Comments Hypothyroid Hx of hysterectomy 1989 Thyroid disease GERD (gastroesophageal reflux disease) Encounter for follow-up surveillance of appendic eal cancer Appendix carcinoma (HCC) Sleep apnea Anemia Family History Medical History Relation Name Comments Cardiomyopathy Brother Pancreatic cancer Father No Known Problems Mother Relation Name Status Comments Brother Father Mother Social History Tobacco Use Types Packs/Day Years Used Date Smoking Tobacco: Never Smokeless Tobacco: Never Tobacco Cessation:Counseling Given: Not Answered Alcohol Use Standard Drinks/Week Comments Yes 0 (1 standard drink = 0.6 oz pur e alcohol) rare AUDIT-C Answer Date Recorded Frequency of Alcohol Consumption Not on file 09/27/2024 Q2: How many drinks containi ng alcohol do you have on a typical day when you are drinking? 1 or 2 09/27/2024 Q3: How often do you have si x or more drinks on one occasion? Never 09/27/2024 Personal Safety Answer Date Recorded Have you ever been in or are you currently in a harmful physical or emotional relationship or is someone making you feel afraid or unsafe? Denies 10/04/2024 Comments No Sex and Gender Information Value Date Recorded Sex Assigned at Not on file Legal Sex Female 12:09 PM GAMING CAGE CASHIER Gender Identity Not on file Sexual Orientation Not on file Obstetrics History Last Filed Vital Signs Vital Sign Reading Time Taken Comments Blood Pressure 175/84 10/04/2024 10:10 AM GAMING CAGE CASHIER Pulse 69 10/04/2024 10:10 AM GAMING CAGE CASHIER Temperature 36.8 C (98.2 F) 10/04/2024 9:50 AM GAMING CAGE CASHIER Respiratory Rate 13 10/04/2024 10:05 AM GAMING CAGE CASHIER Oxygen Saturation 100% 10/04/2024 10:10 AM GAMING CAGE CASHIER Inhaled Oxygen Concentration - - Weight 84.4 kg (186 lb) 10/04/2024 8:56 AM GAMING CAGE CASHIER Height 175.3 cm (5' 9) 10/04/2024 8:56 AM GAMING CAGE CASHIER Body Mass Index 27.47 10/04/2024 8:56 AM GAMING CAGE CASHIER Plan of Treatment Health Maintenance Due Date Last Done Comments Depression Screening 1950 Hepatitis C Screening 1950 Osteoporosis Screening-Bone Density Scan 1950 DTaP/Tdap/Td Vaccine (1 - Tdap) 1959 Hepatitis B Screening 1966 Pneumococcal vaccine 65+ (1 of 2 - PCV) 1967 Zoster Vaccine (1 of 2) 1967 Well Visit 65+ 2013 Covid-19 Vaccine (3 - Modern a risk series) 11/27/2020 10/30/2020, 10/02/2020 Influenza Vaccine (Season Ended) 2025 07/28/20 19, 06/19/2017 Fall Risk Assessment 10/04/2025 10/04/2024 Colon Cancer Screening-CT Colonography Discontinued Colon Cancer Screening-Colonoscopy Discontinued 2024 Colon Cancer Screening-DNA Stool Discontinued 10/04/19 Colon Cancer Screening-FIT Discontinued 10/04/2024 Colon Cancer Screening-FOBT Discontinued 10/04/2024 Colon Cancer Screening-Sigmoidoscopy Discontinued 09/19 Colorectal Cancer Screening Discontinued Procedures Procedure Name Priority Date/Time Associated Diagnosis Comments COLONOSCOPY 10/04/2024 8:59 AM GAMING CAGE CASHIER from Last 3 Months or Most Recently Relevant to Health Maintenance Results * Colonoscopy (10/04/2024 8:59 AM GAMING CAGE CASHIER) Anatomical Region Laterality Modality Other Narrative Procedure Note Zackary Lee Jr., MD - 10/04/2024 8:59 AM CST ENDOSCOPY LAB Patient Name: Shasta Herrera Procedure Date: 10/04/2024 8:59 AM Date of : 1950 Admit Type: Outpatient Age: 73 Gender: Female Attending MD: Zackary Lee Jr, M.D. Room: [facility] ENDOSCOPY ROOM 05 Note Status: Finalized Procedure: Colonoscopy Indications: High risk colon cancer surveillance: Personalhistory of colon cancer, Last colonoscopy 3 years ago Providers: Zackary Lee Jr, M.D. Referring MD: Gadiel Bradley M.D. Medicines: Propofol per Anesthesia Complications: No immediate complications. Estimated Blood Loss: Estimated blood loss: none. Procedure: Pre-Anesthesia Assessment: - Prior to the procedure, a History and Physicalwas performed, and patient medications and allergieswere reviewed. The patient's tolerance of previous anesthesia was also reviewed. The risks andbenefits of the procedure and the sedation options and risks were discussed with the patient. All questions were answered, and informed consent was obtained. Prior Anticoagulants: The patient has taken noanticoagulant or antiplatelet agents. ASA Grade Assessment: II -A patient with mild systemic disease. After reviewing the risks and benefits, the patient was deemed in satisfactory condition to undergo the procedure. The benefits, risks and alternatives of theprocedure and sedation were discussed and informed consentwas obtained. All questions were answered. Please referto the signed informed consent document in the medical record. The scope was passed under direct vision.The [id number] was introduced through the anusand advanced to the ileocolonic anastomosis. The colonoscopy was performed without difficulty. The patient tolerated the procedure well. The qualityof the bowel preparation was good. Ileocolicanastomosis and terminal ileum were photographed. Bowel prepwas administered using a split dose. Findings: The perianal and digital rectal examinations were normal. There was evidence of a prior end-to-side ileo-colonic anastomosis in the transverse colon. This was patent and was characterized byhealthy appearing mucosa. The anastomosis was traversed. The entire examined colon appeared normal. Many small and large-mouthed diverticula were found in the sigmoidcolon. Internal hemorrhoids were found during retroflexion. The hemorrhoids were Grade II (internal hemorrhoids that prolapse but reduce spontaneously). Impression: - Patent end-to-side ileo-colonic anastomosis, characterized by healthy appearing mucosa. - The entire examined colon is normal. - Diverticulosis in the sigmoid colon. - Internal hemorrhoids. - No specimens collected. Recommendation: - Repeat colonoscopy in 5 years for surveillance. - Return to my office at appointment to bescheduled. Electronically Signed By Zackary Lee Jr, M.D. Zackary Lee Jr, M.D. 10/04/2024 9:50:45 AM Number of Addenda: 0 Note Initiated On: 10/04/2024 8:59 AM Zackary Lee Jr., MD ENDOSCOPY PROCEDURES Final Result from Last 3 Months or Most Recently Relevant to Health Maintenance Insurance MEDICARE [facility] MEDICARE SUPPLEMENT MEDICARE [facility] MEDICARE SUPPLEMENT Advance Directives For more information, please contact: [phone] Documents on File Type Date Recorded Patient Vice President Payer Expl anation ADVANCE DIRECTIVE 07/27/2019 5:53 AM Power of Furnace Fitter-Medical * Full Code (Latest Code Status on File) Date Activated Date Inactivated Comments 10/04/2024 8:56 AM 10/04/2024 2:11 PM * Full Code Date Activated Date Inactivated Comments 07/27/2019 4:31 PM 08/01/2019 7:38 PM Care Teams Chocolate Temperer Relationship Specialty Start Date End Date Gadiel Bradley MD [address] [place] [address] PCP - General Internal Medicine 05/11/19 Ryan Easton DO [address] [place] [address] Referring Physician Surgery 05/11/19 Fabien Fowler MD [address] [address] Medical Oncologist Oncology 08/14/19 Zackary Lee Jr., MD [address] [phone] [place] [address] Surgeon Colon and Rectal Surgery 09/10/24
--- OUTSIDE RECORDS SUMMARY | 2025-04-02 09:53 | XMS_ITS | Clinical Summary ---
Author Organization [facility] Address [address] [place] [id number] Care Team Providers Care Line Person Name Role Phone Unavailable Primary Care Provider Unavailabl e Social History Tobacco Use Types Packs/Day Years Used Date Smoking Tobacco: Never Assessed Comments Unknown Sex and Gender Information Value Date Recorded Sex Assigned at Not on file Legal Sex Female 9:52 AM [employer] Gender Identity Not on file Sexual Orientation Not on file Plan of Treatment Health Maintenance Due Date Last Done Comments DEXA Bone Density 1950 Hepatitis C Virus (HCV) Screening 1950 TdaP Immunization 1950 Colonoscopy 1993 Colorectal Cancer Screening 1993 Cologuard 1998 Immunochemical Fecal Occult Blood 1998 Pneumococcal Immunization (5 0+ years) (1 of 1 - PCV) 1998 Zoster Immunization (1 of 2) 1998 Respiratory Syncytial Virus (RSV) Immunization (Adult) (1 - 1-dose 75+ series) 2023 Influenza Immunization (#1) 2024 06/19/2017 SARS-COV-2 Immunization ( season) 2024 Hepatitis B Immunization Aged Out No longer eligible based on patient's age to complete this topic Meningococcal Immunization (ACWY) Aged Out No longer eligible based on patient's age to complete this topic Rotavirus Immunization Aged Out No lo nger eligible based on patient's age to complete this topic
--- OUTSIDE RECORDS SUMMARY | 2025-04-02 09:53 | XMS_ITS ---
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 Past Treatment and Therapy Plans No past plan information found. 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
--- OUTSIDE RECORDS SUMMARY | 2025-04-02 09:53 | XMS_ITS | Referral Summary ---
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] on file Legal Sex Female 12:09 PM MANAGER SUPPLIER Gender Identity Not on file Sexual Orientation Not on file Last Filed Vital Signs Vital Sign Reading Time Taken Comments Blood Pressure 175/84 10/04/2024 10:10 AM MANAGER SUPPLIER Pulse 69 10/04/2024 10:10 AM MANAGER SUPPLIER Temperature 36.8 C (98.2 F) 10/04/2024 9:50 AM MANAGER SUPPLIER Respiratory Rate 13 10/04/2024 10:05 AM MANAGER SUPPLIER Oxygen Saturation 100% 10/04/2024 10:10 AM MANAGER SUPPLIER Inhaled Oxygen Concentration - - Weight 84.4 kg (186 lb) 10/04/2024 8:56 AM MANAGER SUPPLIER Height 175.3 cm (5' 9) 10/04/2024 8:56 AM MANAGER SUPPLIER Body Mass Index 27.47 10/04/2024 8:56 AM MANAGER SUPPLIER Plan of Treatment Not on file Procedures Procedure Name Priority Date/Time Associated Diagnosis Comments COLONOSCOPY 10/04/2024 8:59 AM MANAGER SUPPLIER from Last 3 Months or Most Recently Relevant to Health Maintenance Results * Colonoscopy (10/04/2024 8:59 AM MANAGER SUPPLIER) Anatomical Region Laterality Modality Other Narrative Procedure Note Zackary Lee Jr., MD - 10/04/2024 8:59 AM CST ENDOSCOPY LAB Patient Name: Shasta Herrera Procedure Date: 10/04/2024 8:59 AM Date of : 1950 Admit Type: Outpatient Age: 73 Gender: Female Attending MD: Zackary Lee JrM.Paula. Room: [facility] ENDOSCOPY ROOM 05 Note Status: Finalized Procedure: [...] The scope was passed under direct vision.The [id number] was introduced through the anusand advanced to [...] Recently Relevant to Health Maintenance Insurance MEDICARE [facility] MEDICARE SUPPLEMENT MEDICARE [facility] MEDICARE SUPPLEMENT Advance Directives For more information, please contact: [phone] Documents on File Type Date Recorded Patient Inspector Poising Expl anation ADVANCE DIRECTIVE 07/27/2019 5:53 AM Power of Sterilizer Machine Operator-Medical * Full Code (Latest Code Status on File) Date Activated Date Inactivated Comments 10/04/2024 8:56 AM 10/04/2024 2:11 PM * Full Code Date Activated Date Inactivated Comments 07/27/2019 4:31 PM 08/01/2019 7:38 PM Care Teams Brick Tosser Relationship Specialty Start Date End Date Gadiel Bradley MD [address] [place] [address] PCP - General Internal Medicine 05/11/19 Ryan Easton DO [address] [place] [address] Referring Physician Surgery 05/11/19 Fabien Fowler MD [address] [address] Medical Oncologist Oncology 08/14/19 Zackary Lee Jr., MD [address] [phone] [place] [address] Surgeon Colon and Rectal Surgery 09/10/24
--- OUTSIDE RECORDS SUMMARY | 2025-04-02 09:53 | XMS_ITS | Data Portability ---
Author Organization [place] - [facility], Main Office Address [address] [place] [address] Care Team Providers Care Utility Helicopter Repairer Name Role Phone MITCHELL MONTES Primary Care Provider MITCHELL MONTES Referring Provider [phone] Assessment Encounter Date Assessment Date Assessment LastModified by Organization Details LastModified Time 03/18/2023 03/18/2023 HPI: 72-year-old female came in today for evaluation of left knee pain. This pain started about 2 or 3 weeks ago. She was at an estate sale and was on her feet quite a bit and then did an extensive amount of shopping after that. She started noticing a lot of pain in the medial aspect of the knee. She has been resting it is last 2 weeks and her pain has quieted down. Patient has a history of previous arthroscopy with partial medial meniscectomy. She has been on meloxicam 15 mg since last fall. Physical exam: 72-year-old female alert pleasant. She is 5 ft 7 211 lb. She has no effusion left knee. Range motion is from 0-130 degrees. Mild tenderness over the mid medial joint line. No lateral joint line tenderness. Hip range motion is full without discomfort. Negative pain with patellofemoral grind. 2+ dorsalis pedis pulse. Impression: 72-year-old female moderate medial compartment osteoarthritis in the left knee. She had a flare up 3 weeks ago. It has quieted down on its own with rest. I discussed the x-ray findings with her. We talked about the use of cortisone injections in the future if she has had recurrent flare up and she will keep that in mind. Proper shoe wear can be beneficial we discussed that as well. Weight loss as well can be beneficial and she is going to work on that as well. At this point she is comfortable. She does want to make sure that she did not have any other pathology causing the pain in knee. I think that is unlikely given the arthritic changes on the x-rays. We will see her back as needed. 20 minutes was spent in treatment patient more than half of this in [id number] conversation [email or web address] Not available 03/18/2023 15:10:23 Plan of Treatment Reminders Order Date Submit Date Provider Last Modified By Organization Details Last Modified Time Details Appointments None record ed. Lab None record ed. Referral None record ed. Procedures None record ed. Surgeries None record ed. Imaging XR, knee 023 03/18/20 [email or web address] [facility], [address], [place], [address], 15:26:46 Medication Orders None record ed. Patient TargetsNo targets recorded. Patient InstructionsNo instructions recorded. Reason for Referral None Reported. Results Created Date Observation Date Name Description Value Unit Range Abnormal Flag Note LastModifiedBy Organization Detail LastModifiedTime 03/18/20 XR, knee No observ ation record ed. [email or web address] [facility] [address] [facility] [address], [place], [address], 03/18/2023 15:08:05 Result Notes None recorded. Problems Name Problem SNOMED Code Status Onset Date Resolution Date Notes Provider Name and Address Organization Details Recorded Time Disorder of shoulder 535330749 Active Not Available [facility] 3 14:09:08 Shoulder joint pain 944352770 Active Not Available [facility] 3 14:09:08 Tibialis tendinitis 86503960 Active Not Available [facility] 3 14:09:08 Pain of right knee joint 5855472237946 00 Active 2022 WILBUR Garcia [employer] 3 14:44:19 Problem Notes None recorded. Procedures Surgical History Date Name Laterality Status Provider Name and Address Organization Details Recorded Time Hip surgery completed WILBUR Garcia [employer] 03/18/2023 14:43:36 Knee completed WILBUR Garcia [facility] [facility] 03/18/2023 14:43:42 Imaging Results None recorded. Procedure Notes None recorded. Medical Equipment None Reported. Medications Name Sig Start Date Stop Date Status Note LastModified by Organization Details LastModified Time cyclobenzapr ine 10 mg tablet 03/18 completed Not Available Not Available Not Available amoxicillin 500 mg capsule 03/18 completed Not Available Not Available Not Available levothyroxin e 137 mcg tablet TAKE 1 TABLET BY MOUTH EVERY DAY active Not Available Not Available No t Available prednisone 10 mg tablet active Not Available Not Available Not Available pravastatin 40 mg tablet 03/18 completed Not Available Not Available Not Available meloxicam 15 mg tablet TAKE 1 TABLET BY MOUTH DAILY active Not Available Not Available No t Available omeprazole 40 mg capsule,chu yed release 03/18 completed Not Available Not Available Not Available ciprofloxaci n 0.3 % eye drops 03/18 completed Not Available Not Available Not Available cephalexin 500 mg capsule TAKE 1 CAPSULE BY MOUTH EVERY 6 HOURS active Not Available Not Available No t Available diclofenac sodium 75 mg tablet,delay ed release 03/18 completed Not Available Not Available Not Available furosemide 20 mg tablet 03/18 completed Not Available Not Available Not Available levofloxacin 750 mg tablet 03/18 completed Not Available Not Available Not Available methylpredni solone 4 mg tablets in a dose pack 03/18 completed Not Available Not Available Not Available fluoxetine 20 mg capsule TAKE 1 CAPSULE BY MOUTH DAILY active Not Available Not Available No t Available fluticasone propionate 50 mcg/actuatio n nasal spray,suspen kerri 03/18 completed Not Available Not Available Not Available Ventolin HFA 90 mcg/actuatio n aerosol inhaler active Not Available Not Available Not Available rosuvastatin 10 mg tablet TAKE 1 TABLET BY MOUTH DAILY active Not Available Not Available No t Available Vitals Date Recorded Body height Body mass index (BMI) Body weight Provider Name and Address Organization Details Last Updated DateTime 03/18/2023 170.18 cm 33 kg/m2 26445.99 g WILBUR Garcia [facility] 03/18/2023 14:46:09 Social History None recorded. Functional Status Question Answer Note LastModified by Organizat ion Details LastModified Time What is your level of alcohol consumption? Occasional [email or web address] Information not available 03/18/2023 Mental Status None recorded. Family History Relationship Description Onset Age of this Age Resolved Age Notes LastModified by Organization Details LastModified Time Father Family history of malignant neoplasm [email or web address] Not available 2022 14:43:08 Medical History Condition Response CANCER: SPECIFY Y Gynecological HistoryNo gynecological history recorded. Obstetrics History GPAL:G 0 P 0 0 0 0 Past Encounters Encounter ID Performer Location Encounter Start Date Encounter Closed Date Diagnosis/Indication Diagnosis SNOMED-CT Code Diagnosis ICD10 Code Diagnosis Note [id number] Chin Padilla MD [facility] [address] [place] [address] 03/18/2023 14:22:01 03/18/2023 15:26:46 Pain of right knee joint 5501979098 62955 M25.561 Health Concerns Section Related Observation LastModified by Organization Detai ls LastModified Time None Recorded Concern Status LastModified by Organization Details LastModified Time None Recorded Advance Directives Directive None Recorded Payers Insurance Date Sequence Insurance Name Policy Number Policy James Covered Member ID James Member ID Guarantor Name 03/21/2023 2 [place] [id number] [id number] Shasta Carpenter [facility] n 03/21/2023 1 [place] Shasta Carpenter [facility] [id number] No OBEpisode recorded.
[2025-04-02 10:28] LABS: Anion Gap 7 mmol/L (4-12); Blood Urea Nitrogen 31 mg/dL (7-17); Calcium 9.3 mg/dL (8.4-10.2); Carbon Dioxide 28 mmol/L (22-30); Chloride 104 mmol/L (98-107); Cholesterol 201 mg/dL (0-200); Estimated Glomerular Filt Rate 57; Glucose 93 mg/dL (65-110); HDL Direct 69 mg/dL; Potassium 4.2 mmol/L (3.4-5.0); Sodium 139 mmol/L (137-145); Triglycerides 82 mg/dL (<150)
[2025-04-02 10:38] LABS: Hemoglobin A1C 5.9 % (<5.7)
[2025-04-02 11:01] LABS: Free T4 Free Thyroxine 0.60 ng/dL (0.78-2.19)
[2025-04-02 11:03] LABS: Thyroid Stimulating Hormone 25.000 uIU/mL (0.465-4.680)
== END 2025-04-02 09:33 | disposition home or self-care (01) ==
LOC: ANHLAB 09:33
PROVIDERS: PCP Internal Medicine; Visit Provider Internal Medicine
DX: E78.5 Hyperlipidemia, unspecified (principal); E03.9 Hypothyroidism, unspecified; R73.03 Prediabetes; I10 Essential (primary) hypertension
CPT/HCPCS: 36415; 80048; 80061; 83036; 84439; 84443